=== PATIENT | female | born 1975 | race Two or more races ===

== ENCOUNTER 2019-02-27 14:55 | Inpatient (IN) | payer OTHER ==
[~2019-02-27] VITALS: Ht 154.9 cm; Wt 63.0 kg
== END 2019-03-01 12:55 | disposition home or self-care (01) | DRG 833 ==
LOC: LDR 14:55 → OB/GYN 14:55 → LDR 02-28 13:43 → OB/GYN 02-28 15:08
PROVIDERS: ADMIT Specialist
PROC: BY4FZZZ Ultrasonography of Third Trimester, Single Fetus (ICD-10-PCS; principal; 2019-02-27)
PROC: 4A1HXCZ Monitoring of Products of Conception, Cardiac Rate, External Approach (ICD-10-PCS; 2019-02-27)
DX: O47.03 False labor before 37 completed weeks of gestation, third trimester (principal); Z34.83 Encounter for supervision of other normal pregnancy, third trimester

== ENCOUNTER 2019-03-25 14:13 | Inpatient (IN) | payer OTHER ==
[~2019-03-25] VITALS: Ht 154.9 cm; Wt 3.2 kg
[2019-03-28] MEDS ORDERED: NIFE60TA3 PO (13:34)
[2019-03-28] MEDS ORDERED: PRENATABS RX T1 EACH PO (13:34)
== END 2019-04-05 11:52 | disposition home or self-care (01) | DRG 785 ==
LOC: SURH 14:13 → O/R 04-02 05:10 → OB/GYN 04-02 05:10 → SURH 04-02 07:00 → OB/GYN 04-02 11:56 → SURH 04-02 14:16 → OB/GYN 04-05 11:52
PROVIDERS: ADMIT Specialist
PROC: 0UL70ZZ Occlusion of Bilateral Fallopian Tubes, Open Approach (ICD-10-PCS; 2019-04-02)
PROC: 4A1HXCZ Monitoring of Products of Conception, Cardiac Rate, External Approach (ICD-10-PCS; 2019-04-02)
PROC: 10D00Z1 Extraction of Products of Conception, Low, Open Approach (ICD-10-PCS; principal; 2019-04-02 07:00)
DX: O82 Encounter for cesarean delivery without indication (principal); Z3A.39 39 weeks gestation of pregnancy; Z37.0 Single live birth; Z30.2 Encounter for sterilization; Z22.330 Carrier of Group B streptococcus

== ENCOUNTER 2019-03-28 13:37 | Outpatient (CLI) | payer OTHER ==
[~2019-03-28 13:37] MED LIST: NIFE60TA3 PO; PRENATABS RX T1 EACH PO
== END 2019-03-28 14:56 | disposition home or self-care (01) ==
LOC: NST 13:37
DX: Z34.83 Encounter for supervision of other normal pregnancy, third trimester (principal)